=== PATIENT | female | born 1975 | race African-American/Black ===

== ENCOUNTER 2017-03-09 21:55 | Emergency (ER) | payer MEDICARE, OTHER ==
[~2017-03-09] VITALS: Ht 160 cm; Wt 77.1 kg
[2017-03-09 22:00] VITALS: BP 118/77
--- NOTE | 2017-03-10 00:13 | NUR ---
PT BACK FROM RADIOLOGY. PENDING CT RESULT.
== END 2017-03-10 01:22 | disposition home or self-care (01) ==
LOC: ER 22:00
DX: M54.2 Cervicalgia (principal); M54.6 Pain in thoracic spine; M54.5 Low back pain; G89.29 Other chronic pain; F41.9 Anxiety disorder, unspecified; I10 Essential (primary) hypertension; Z90.710 Acquired absence of both cervix and uterus; V43.52XA Car driver injured in collision with other type car in traffic accident, initial encounter; Y93.89 Activity, other specified; Y92.89 Other specified places as the place of occurrence of the external cause; Y99.9 Unspecified external cause status
CPT/HCPCS: 71010-TC; 72125-TC; 72128-TC; 72131-TC; 84703-TC; A4606; Z7610